=== PATIENT | male | born 1995 | race African-American/Black ===

== ENCOUNTER 2019-09-12 12:14 | Emergency (ER) | payer SELFPAY ==
[2019-09-12] MEDS ORDERED: Sodium Chloride 0.9% 2.5 ML Syringe FLUSH PRN (12:34)
[2019-09-12] MEDS ORDERED: Sodium Chloride 0.9% 1,000 ML IV ONE (12:34)
[2019-09-12] MEDS ORDERED: Ketorolac 30 MG/ML SDV IVPUSH ONE (12:34)
[2019-09-12] MEDS ORDERED: Sodium Chloride 0.9% 10 ML Syringe FLUSH PRN (12:34)
--- NOTE | 2019-09-12 13:11 | CR ---
Chest: Portable view of the chest was obtained. Comparison: No prior chest imaging is available. Cardiac silhouette and mediastinum are within normal limits for portable technique. Lungs are clear with no acute parenchymal change. Slight scoliosis is noted within the spine. No acute osseous finding is appreciated. Impression: 1. Nothing acute is appreciated on portable chest x-ray. Diagnostic code #2 This report was dictated in MDT
[2019-09-12 13:12] LABS: BLOOD UREA NITROGEN,BUN 12 mg/dL (7.0-18.0); CARBON DIOXIDE,CO2 27.5 mmol/L (21.0-32.0); CHLORIDE,CL 104 mmol/L (98-107); GLUCOSE RANDOM 89 mg/dL (74-106); POTASSIUM,K 3.9 mmol/L (3.5-5.1); SODIUM,NA 139 mmol/L (136-148)
--- NOTE | 2019-09-12 14:20 | EDM.PDOC ---
ED HPI GENERAL MEDICAL PROBLEM - General Chief Complaint: Headache Stated Complaint: CHILLS, HEADACHE, AND HAND WEAKNESS Time Seen by Provider: 09/12/19 12:29 Source of Information: Reports: Patient History Limitations: Reports: No Limitations - History of Present Illness INITIAL COMMENTS - FREE TEXT/NARRATIVE: HISTORY AND PHYSICAL: History of present illness: Patient is a 24-year-old male who presents to the emergency room with complaints of headache, generally feeling unwell and occasional dry nonproductive cough over the past several days. Patient describes the headache as a generalized dull nagging pain which he has before. He states it has been a while since he has had a headache like this, but this is not unusual. No light or noise sensitivity with this. He states his eyes have been very red and irritated although has not had any drainage or visual changes. He attributes the eye redness to his headache and seasonal allergies. He states he and his girlfriend both have had molar symptoms, girlfriend was tested for COVID 2 days ago, has not received results. Today he wanted to leave work early and they requested he come to the emergency room for evaluation. Patient denies any weakness, change in vision, syncope or near syncope. Denies any chest pain, back pain, or shortness of breath. Denies any abdominal pain, nausea, vomiting, diarrhea, constipation or dysuria. Has not noted any blood in urine or stool. Patient has been eating and drinking appropriately. Review of systems: As per history of present illness and below otherwise all systems reviewed and negative. Past medical history: As per history of present illness and as reviewed below otherwise noncontributory. Surgical history: As per history of present illness and as reviewed below otherwise noncontributory. Social history: See social history for further information Family history: As per history of present illness and as reviewed below otherwise noncontributory. Physical exam: General: Well-developed and well-nourished 24-year-old -[place] male. Alert and oriented. Nontoxic-appearing and in no acute distress. Signs are stable and have been reviewed by me. HEENT: Atraumatic, normocephalic, pupils equal and reactive bilaterally, negative for conjunctival pallor or scleral icterus, lateral scleral injection, mucous membranes moist, TMs normal bilaterally, throat clear, neck supple, nontender, trachea midline. No drooling or trismus noted. No meningeal signs. No hot potato voice noted. Lungs: Clear to auscultation, breath sounds equal bilaterally, chest nontender. Heart: S1S2, regular rate and rhythm without overt murmur Abdomen: Soft, nondistended, nontender. Negative for masses or hepatosplenomegaly. Negative for costovertebral tenderness. Pelvis: Stable nontender. Skin: Intact, warm, dry. No lesions or rashes noted. Extremities: Atraumatic, moves all extremities per self without difficulty or deficits, negative for cords or calf pain. Neurovascular unremarkable. Neuro: Awake, alert, oriented. Cranial nerves II through XII unremarkable. Cerebellum unremarkable. Motor and sensory unremarkable throughout. Exam nonfocal. Notes: Patient's headache has improved since IV fluids/medication. Lab work is unremarkable. Chest x-ray is unremarkable. Patient's COVID screening is positive. It was reevaluated and he is appropriate for discharge. Vital signs remained stable. He is breathing easy and without effort. I did discuss in great length his discharge instructions and signs and symptoms that would prompt him to return to the emergency room. A work note was given for self quarantine. Follow-up, medication and supportive care measures were reviewed and discussed. Voices understanding and is agreeable to plan of care. Denies any further questions or concerns at this time. Diagnostics: CBC, CMP, COVID-19, CXR Therapeutics: Toradol, IV fluids Prescription: Dexamethadone Impression: COVID-19 Plan: 1. Your COVID-19 screening is positive. That means you do have the coronavirus and are considered contagious. Your vital signs and oxygen saturation are well enough that you were able to monitor your symptoms at home. Continue to monitor for trouble breathing, new confusion or inability to arouse, bluish lips or face or any of the other symptoms we discussed -if this occurs please return to the emergency room. 2. Please self quarantine over the next 2 weeks. Inform any persons that you have been in contact with since you started becoming symptomatic that you have tested positive; they should be made aware and take the appropriate steps as needed. 3. Take the medications as we prescribed as discussed. You can take NyQuil during the evening to help get a restful night sleep. 4. You may alternate Tylenol and ibuprofen as needed for pain and fever management. 5. The [facility] department will be calling you and following up with you. The [facility] [place] Hotline phone number , They are open Sunday - Sunday 7am - 7pm. Follow up with your primary care provider for re-evaluation and re-testing after the 2 week quarantine and discuss when you should be seen. Definitive disposition and diagnosis as appropriate pending reevaluation and review of above. Headache Pain Score (Numeric/FACES): 6 - Related Data Allergies Allergy/AdvReac Type Severity Reaction Status Date / Time pollen extracts Allergy Hives Verified 09/12/19 12:33 Home Meds: Home Meds dexAMETHasone [Dexamethasone] 4 mg PO BID 5 Days #10 tablet 09/12/19 [Rx] Past Medical History - Past Health History Medical/Surgical History: Denies Medical/Surgical History - Infectious Disease History Infectious Disease History: Reports: None Social & Family History - Family History Family Medical History: Noncontributory - Tobacco Use Smoking Status *Q: Never Smoker - Caffeine Use Caffeine Use: Reports: Soda - Recreational Drug Use Recreational Drug Use: No ED ROS GENERAL - Review of Systems Review Of Systems: Comprehensive ROS is negative, except as noted in HPI. ED EXAM, GENERAL - Physical Exam Exam: See Below (See dictation) Course - Vital Signs Last Recorded V/S: Last Vital Signs Temp 96.6 F L 09/12/19 12:26 Pulse 91 09/12/19 12:26 Resp 17 09/12/19 12:26 BP 138/84 09/12/19 12:26 Pulse Ox 98 09/12/19 12:26 - Orders/Labs/Meds Orders: Active Orders 24 hr Category Date Time Status Sodium Chloride 0.9% [Saline Flush] Med 09/12/19 12:34 Active 10 ml FLUSH ASDIRECTED PRN Sodium Chloride 0.9% [Saline Flush] Med 09/12/19 12:34 Active 2.5 ml FLUSH ASDIRECTED PRN Saline Lock Insert [OM.PC] Stat Oth 09/12/19 12:34 Ordered Medication Orders Sodium Chloride (Saline Flush) 10 ml FLUSH ASDIRECTED PRN PRN Reason: Keep Vein Open Last Admin: 09/12/19 12:40 Dose: 10 ml Documented by: KRUNAL Sodium Chloride (Saline Flush) 2.5 ml FLUSH ASDIRECTED PRN PRN Reason: Keep Vein Open Last Admin: 09/12/19 12:40 Dose: 2.5 ml Documented by: KRUNAL Labs: Laboratory Tests 09/12/19 09/12/19 09/12/19 Range/Units 12:42 12:42 13:32 WBC 5.21 (4.0-11.0) K/uL RBC 4.77 (4.50-5.90) M/uL Hgb 14.5 (13.0-17.0) g/dL Hct 42.8 (38.0-50.0) % MCV 89.7 (80.0-98.0) fL MCH 30.4 (27.0-32.0) pg MCHC 33.9 (31.0-37.0) g/dL RDW Std Deviation 43.5 (28.0-62.0) fl RDW Coeff of [place] 13 (11.0-15.0) % Plt Count 175 (150-400) K/uL MPV 10.60 (7.40-12.00) fL Neut % (Auto) 68.5 (48.0-80.0) % Lymph % (Auto) 21.7 (16.0-40.0) % [place] % (Auto) 8.4 (0.0-15.0) % Eos % (Auto) 1.2 (0.0-7.0) % Baso % (Auto) 0.2 (0.0-1.5) % Neut # (Auto) 3.6 (1.4-5.7) K/uL Lymph # (Auto) 1.1 (0.6-2.4) K/uL [place] # (Auto) 0.4 (0.0-0.8) K/uL Eos # (Auto) 0.1 (0.0-0.7) K/uL Baso # (Auto) 0.0 (0.0-0.1) K/uL Nucleated RBC % 0.0 /100WBC Nucleated RBCs # 0 K/uL Sodium 139 (136-148) mmol/L Potassium 3.9 (3.5-5.1) mmol/L Chloride 104 (98-107) mmol/L Carbon Dioxide 27.5 (21.0-32.0) mmol/L BUN 12 (7.0-18.0) mg/dL Creatinine 1.2 (0.8-1.3) mg/dL Est Cr Clr Drug Dosing 108.20 mL/min Estimated GFR (MDRD) > 60.0 ml/min Glucose 89 (74-106) mg/dL Calcium 8.8 (8.5-10.1) mg/dL Total Bilirubin 0.5 (0.2-1.0) mg/dL AST 24 (15-37) IU/L ALT 40 (14-63) IU/L Alkaline Phosphatase 60 (46-116) U/L Total Protein 7.9 (6.4-8.2) g/dL Albumin 4.1 (3.4-5.0) g/dL Globulin 3.8 (2.6-4.0) g/dL Albumin/Globulin Ratio 1.1 (0.9-1.6) COVID-19 (ANDREZ) POSITIVE H (NEGATIVE) Meds: Medications Generic Name Dose Route Start Last Admin Trade Name Freq PRN Reason Stop Dose Admin Sodium Chloride 10 ml 09/12/19 12:34 09/12/19 12:40 Saline Flush FLUSH 10 ml ASDIRECTED PRN Administration Keep Vein Open Sodium Chloride 2.5 ml 09/12/19 12:34 09/12/19 12:40 Saline Flush FLUSH 2.5 ml ASDIRECTED PRN Administration Keep Vein Open Discontinued Medications Generic Name Dose Route Start Last Admin Trade Name Freq PRN Reason Stop Dose Admin Sodium Chloride 1,000 mls @ 999 mls/hr 09/12/19 12:34 09/12/19 12:40 Normal Saline IV 09/12/19 13:34 999 mls/hr STAT ONE Administration Ketorolac Tromethamine 30 mg 09/12/19 12:34 09/12/19 12:40 Toradol IVPUSH 09/12/19 12:35 30 mg ONETIME ONE Administration Departure - Departure Time of Disposition: 14:41 Disposition: Home, Self-Care 01 Clinical Impression: COVID-19 - Discharge Information Prescriptions: dexAMETHasone [Dexamethasone] 4 mg PO BID 5 Days #10 tablet Instructions: COVID-19 Frequently Asked Questions Referrals: PCP,None [Primary Care Provider] - Forms: ED Department Discharge Additional Instructions: The following information is given to patients seen in the emergency department who are being discharged to home. This information is to outline your options for follow-up care. We provide all patients seen in our emergency department with a follow-up referral. The need for follow-up, as well as the timing and circumstances, are variable depending upon the specifics of your emergency department visit. If you don't have a primary care physician on staff, we will provide you with a referral. We always advise you to contact your personal physician following an emergency department visit to inform them of the circumstance of the visit and f or follow-up with them and/or the need for any referrals to a consulting specialist. The emergency department will also refer you to a specialist when appropriate. This referral assures that you have the opportunity for follow-up care with a specialist. All of these measure are taken in an effort to provide you with optimal care, which includes your follow-up. Under all circumstances we always encourage you to contact your private physician who remains a resource for coordinating your care. When calling for follow-up care, please make the office aware that this follow-up is from your recent emergency room visit. If for any reason you are refused follow-up, please contact the [facility] Emergency Department at and asked to speak to the emergency department charge nurse. [facility] [address] [place] [address] [facility] [address] [place] [address] Thank you for choosing the [facility] emergency department in [place] for your medical needs today. It was a pleasure caring for you. Today you were seen in the emergency department for headache. 1. Your COVID-19 screening is positive. That means you do have the coronavirus and are considered contagious. Your vital signs and oxygen saturation are well enough that you were able to monitor your symptoms at home. Continue to monitor for trouble breathing, new confusion or inability to arouse, bluish lips or face or any of the other symptoms we discussed -if this occurs please return to the emergency room. 2. Please self quarantine over the next 2 weeks. Inform any persons that you have been in contact with since you started becoming symptomatic that you have tested positive; they should be made aware and take the appropriate steps as needed. 3. Take the medications as we prescribed as discussed. You can take NyQuil during the evening to help get a restful night sleep. 4. You may alternate Tylenol and ibuprofen as needed for pain and fever management. 5. The [facility] department will be calling you and following up with you. The [facility] [employer] Hotline phone number , They are open Sunday - Sunday 7am - 7pm. Follow up with your primary care provider for re-evaluation and re-testing after the 2 week quarantine and discuss when you should be seen. Sepsis Event Note (ED) - Evaluation Sepsis Screening Result: No Definite Risk - Focused Exam Vital Signs: Vital Signs Temp Pulse Resp BP Pulse Ox 09/12/19 12:26 96.6 F L 91 17 138/84 98 - My Orders Last 24 Hours: My Active Orders 09/12/19 12:34 Sodium Chloride 0.9% [Saline Flush] 10 ml FLUSH ASDIRECTED PRN Sodium Chloride 0.9% [Saline Flush] 2.5 ml FLUSH ASDIRECTED PRN Saline Lock Insert [OM.PC] Stat - Assessment/Plan Last 24 Hours: My Active Orders 09/12/19 12:34 Sodium Chloride 0.9% [Saline Flush] 10 ml FLUSH ASDIRECTED PRN Sodium Chloride 0.9% [Saline Flush] 2.5 ml FLUSH ASDIRECTED PRN Saline Lock Insert [OM.PC] Stat
== END 2019-09-12 14:55 | disposition home or self-care (01) ==
LOC: MW.ED 12:14
DX: U07.1 COVID-19 (principal); Z91.09 Other allergy status, other than to drugs and biological substances; Z79.899 Other long term (current) drug therapy
CPT/HCPCS: 71045; 80053; 85025; 87635; 96374; 99285; J1885; J7030; 99283; U0002